=== PATIENT | female | born 1975 | race Caucasian/White ===

== ENCOUNTER 2016-11-25 21:14 | Emergency (ER) | payer OTHER ==
[~2016-11-25] VITALS: Ht 167.6 cm; Wt 59.0 kg
[~2016-11-25 21:14] MED LIST: ANTABUSE250 MG PO; ANTIVERT 25 MG25 M1 PO; LEXAPRO10 MG PO; LIDOCAINE51 EXT; LORAZEPAM0.5 MG PO; MELOXICAM15 MG PO; NEXIUM 40MG40 MG PO; REMERON15 MG PO; REVIA50 MG PO; VISTARIL25 MG PO; WOMEN'S DAILY1 TAB PO
--- NOTE | 2016-11-25 22:45 | ED UPPER/LOWER EXTREMITY COMPL ---
History of Present Illness General Chief Complaint: Hand or Wrist Injury Stated Complaint: RIGHT HAND INJURY Source: patient Exam Limitations: no limitations Vital Signs & Intake/Output Vital Signs & Intake/Output Vital Signs Date Time Temp Pulse Resp B/P Pulse O2 O2 Flow FiO2 Ox Delivery Rate 11/25 2327 98.6 80 16 120/82 97 Room Air 11/259 98.6 78 16 115/74 100 Room Air Allergies Coded Allergies: levofloxacin (From LEVAQUIN) (NAUSEA 11/25/16) Reconcile Medications Alprazolam 0.25 MG TABLET 1 TAB PO PRN ANXIETY (Reported) Biotin (Unknown Strength) TABLET (Unknown Dose) PO DAILY SUPPLEMENT (Reported ) Cephalexin (Keflex) 500 MG CAPSULE 1 CAP PO 4 TIMES/DAY infection prevention Cyanocobalamin (Vitamin B-12) (Unknown Strength) TABLET (Unknown Dose) PO DAILY SUPPLEMENT (Reported) Esomeprazole (Nexium) (Unknown Strength) CAPSULE.DR (Unknown Dose) PO DAILY GI (Reported) Ibuprofen 800 MG TABLET 1 TAB PO TID PRN pain Thiamine HCl (B-1) (Unknown Strength) TABLET (Unknown Dose) PO DAILY SUPPLEMENT (Reported) Triage Note: PT TO ED FOR R HAND PAIN AFTER HITTING A WALL, HAND APPEARS BRUISED, SWOLLEN, +SENSATION AND PULSES. MULTIPLE ABRASIONS TO KNUCKLES ON R HAND. Triage Nurses Notes Reviewed? yes Onset: Abrupt Duration: hour(s): Timing: single episode today Severity: moderate Pain/Injury Location: Right: Hand. Method of Injury: direct blow Modifying Factors: Improves With: rest. Worsens With: movement. Associated Symptoms: swelling : No Patient currently breastfeeds: No HPI: 41 yo woman presents with right hand swelling and pain after punching a wall. She notes pain around her right 5th knuckle, swelling, and pain with movement. She notes abrasions along her knuckles. She is otherwise well and notes no other injuries. Past History Travel History Traveled to [place] past 21 day No Medical History Any Pertinent Medical History? see below for history Neurological: vertigo EENT: NONE Cardiovascular: syncope Respiratory: NONE Gastrointestinal: NONE Hepatic: NONE Renal: NONE Musculoskeletal: NONE Psychiatric: anxiety Endocrine: NONE Blood Disorders: NONE Cancer(s): NONE Surgical History Surgical History: non-contributory Psychosocial History What is your primary language Maltese Tobacco Use: Current Daily Use Daily Tobacco Use Amount/Type: => 5 Cigarettes daily ETOH Use: heavy use Illicit Drug Use: denies illicit drug use Family History Hx Contributory? No Review of Systems Review of Systems Constitutional: Reports: no symptoms. EENTM: Reports: no symptoms. Respiratory: Reports: no symptoms. Cardiovascular: Reports: no symptoms. Gastrointestinal/Abdominal: Reports: no symptoms. Genitourinary: Reports: no symptoms. Musculoskeletal: Reports: no symptoms. Skin: Reports: no symptoms. Neurological/Psychological: Reports: no symptoms. Hematologic/Endocrine: Reports: no symptoms. Immunological: Reports: no symptoms. All Other Systems: Reviewed and Negative Physical Exam Physical Exam General Appearance: well developed/nourished, mild distress Head: atraumatic Eyes: Bilateral: normal appearance. Ears, Nose, Throat: normal ENT inspection Neck: normal inspection, supple Cardiovascular/Respiratory: regular rate/rhythm Back: normal inspection Hand Right: 5th finger, right 5th mcp region with swelling, tenderness. worse with movement. several small abrasions along knuckles. Skin: intact, normal color, warm/dry Lymphatic: no anterior cervical suzette Progress Differential Diagnosis: contusion, fracture, sprain Plan of Care: Orders Procedure Date/time Status XRY-WRIST COMPLETE-RIGHT 11/25 2138 Active XRY-HAND, 3 View RIGHT 11/25 2138 Active Diagnostic Imaging: Viewed by Me: Radiology Read. Discussed w/RAD: Radiology Read. Radiology Impression: right wrist/hand... 5th finger fracture as below Comments: PATIENT: SONU VILLA PRESENT AGE: 41 PATIENT ACCOUNT NO: [id number] : 77 LOCATION: [facility] ORDERING PHYSICIAN: TRUMAN GONCALVES MD SERVICE DATE: 11/25/16 EXAM TYPE: RAD - XRY-HAND, RIGHT; XRY-WRIST COMPLETE-RIGHT EXAMINATION: XR WRIST, RIGHT CLINICAL INFORMATION: Right wrist and hand pain COMPARISON: None. TECHNIQUE: 3 views of the right hand., 3 views of the right breast FINDINGS: Right hand: There is a comminuted fracture involving the base of the proximal phalanx of the fifth digit. This fracture does extend to the articular surface. This is best appreciated on the lateral view. No other fractures identified within the right hand. No subluxation. No retained opaque foreign body.. There is slight ulnar deviation of the distal fracture fragment. Right wrist: There are no acute fractures or dislocations. A well corticated fragment of bone distal and slightly lateral to the ulnar styloid is consistent with a remote injury in this region. No joint effusion is identified. No bone, joint or soft tissue abnormality is demonstrated. IMPRESSION: 1. Comminuted fracture involving the base of the proximal phalanx of the fifth right digit with extension to the articular surface. Minimal associated displacement. 2. Intact right wrist. DICTATED BY: HEAVENLY RIZVI MD DATE/TIME DICTATED:11/25/162239 SHOE SPRAYER:NOEMI DATE/TIME TRANSCRIBED:11/25/162239 CONFIDENTIAL, DO NOT COPY WITHOUT APPROPRIATE AUTHORIZATION. <Electronically signed in Other Vendor System> SIGNED BY: HEAVENLY RIZVI MD 11/25/162248 Departure Departure Disposition: HOME OR SELF CARE Condition: Stable Clinical Impression Primary Impression: Abrasion Secondary Impressions: Finger fracture, right Referrals: MAIRA MUNOZ,MOJGAN Garcia (PCP/Family) Departure Forms: Customer Survey General Discharge Information Prescriptions: Current Visit Scripts Ibuprofen 1 TAB PO TID PRN pain #60 TAB Cephalexin (Keflex) 1 CAP PO 4 TIMES/DAY #28 CAP Comments discussed at length... splint placed... will give abx given concern for infection. Procedures Splinting Location: right hand Manual Alignment Performed: No Hand-Made Type: orthoglass Splint: hand/mcp Splint Applied By: splint applied by ar Pre-Proc Neuro Vasc Exam: normal Post-Proc Neuro Vasc Exam: normal
--- NOTE | 2016-11-25 22:49 | RADIOLOGY REPORT ---
EXAMINATION: XR WRIST, RIGHT CLINICAL INFORMATION: Right wrist and hand pain COMPARISON: None. TECHNIQUE: 3 views of the right hand., 3 views of the right breast FINDINGS: Right hand: There is a comminuted fracture involving the base of the proximal phalanx of the fifth digit. This fracture does extend to the articular surface. This is best appreciated on the lateral view. No other fractures identified within the right hand. No subluxation. No retained opaque foreign body.. There is slight ulnar deviation of the distal fracture fragment. Right wrist: There are no acute fractures or dislocations. A well corticated fragment of bone distal and slightly lateral to the ulnar styloid is consistent with a remote injury in this region. No joint effusion is identified. No bone, joint or soft tissue abnormality is demonstrated. IMPRESSION: 1. Comminuted fracture involving the base of the proximal phalanx of the fifth right digit with extension to the articular surface. Minimal associated displacement. 2. Intact right wrist.
[2016-11-25] MEDS ORDERED: NEXIUM40 M1 PO (22:52)
[2016-11-25] MEDS ORDERED: VITAMIN B-121000 MC3 PO (22:52)
[2016-11-25] MEDS ORDERED: BIOTIN800 MCG PO (22:53)
[2016-11-25] MEDS ORDERED: B-1100 MG PO (22:53)
[2016-11-25] MEDS ORDERED: ALPRAZOLAM0.25 M1 PO (22:53)
[2016-11-25] MEDS ORDERED: IBUPROFEN800 M1 PO (23:17)
[2016-11-25] MEDS ORDERED: KEFLEX500 M1 PO (23:20)
[2016-11-25 23:27] VITALS: BP 120/82
== END 2016-11-25 23:28 ==
LOC: ERH 21:14
DX: S62.616A Displaced fracture of proximal phalanx of right little finger, initial encounter for closed fracture (principal); S60.511A Abrasion of right hand, initial encounter; W22.01XA Walked into wall, initial encounter
CPT/HCPCS: 73110-RT; 73130-RT; 90471; 90714